=== PATIENT | female | born 1985 | race African-American/Black ===

== ENCOUNTER 2018-02-25 14:34 | Inpatient (IN) ==
[2018-02-28 08:35] VITALS: BP 111/69
== END 2018-02-28 13:20 | disposition home or self-care (01) | DRG 560 ==
LOC: N.LDOUT 14:34 → N.LD 14:35 → N.OB 02-26 17:31
PROVIDERS: ADMIT Obstetrics & Gynecology; ATTEND Obstetrics & Gynecology

== ENCOUNTER 2018-03-09 12:27 | Inpatient (IN) ==
[2018-03-09] MEDS ORDERED: ONDANSETRON 4 MG/2 ML VIAL IV STA (14:42)
[2018-03-09] MEDS ORDERED: hydrALAZINE 20 MG/1 ML VIAL IV STA (14:43)
[2018-03-09] MEDS ORDERED: MORPHINE 4 MG/1 ML VIAL IV STA (14:44)
[2018-03-09 15:11] LABS: Albumin 3.4 G/DL (3.4-5.0); Bilirubin,Total 0.5 MG/DL (0.2-1.0); Calcium 8.4 MG/DL (8.5-10.1); Osmolality,Calculated 283.8 MOS/KG (273-304); Potassium 3.5 MMOL/L (3.5-5.1); Total Protein 7.1 G/DL (6.4-8.3)
[2018-03-09] MEDS ORDERED: ONDANSETRON 4 MG/2 ML VIAL ONE (15:11)
[2018-03-09] MEDS ORDERED: MORPHINE 4 MG/1 ML VIAL ONE (15:11)
[2018-03-09] MEDS ORDERED: hydrALAZINE 20 MG/1 ML VIAL ONE (15:20)
[2018-03-09 15:21] LABS: Basophils # 0.1 10*3/uL (0.0-0.2); Basophils % 0.7 % (0.0-0.8); Eosinophils # 0.1 10*3/uL (0.0-0.87); Eosinophils % 1.5 % (0.00-10.9); Hematocrit 35.1 VOL% (35.7-47.0); Hemoglobin 11.8 GM/DL (12.0-16.0); Immature Granulocytes % 0.4 %; Immature Granulocytes Absolute 0.03 #; Lymphocytes # 2.2 10*3/uL (1.4-4.0); Mean Corpuscular HGB Conc 33.6 GM/DL (32-36); Mean Corpuscular Hemoglobin 24 PG (27-34); Mean Corpuscular Volume 70.8 FL (87-102); Mean Platelet Volume 9.4 FL (9.6-12.0); Monocytes # 0.4 10*3/uL (0.11-0.8); Monocytes % 5.3 % (1.7-12.7); Neutrophils # 4.6 10*3/uL (1.4-7.4); Neutrophils % 62.1 % (38.7-73.9); Platelet Count 307 T/CUMM (130-400); Red Blood Count 4.96 MC/CUMM (3.8-5.5); Red Cell Distribution Width 17.4 % (9.3-17.3); White Blood Count 7.4 T/CUMM (4-12)
[2018-03-09 15:42] LABS: Apearance,Urine CLOUDY (Clear); Bilirubin,Urine Negative (Negative); Blood, Urine Large mg/dL (Negative); Glucose,Urine (UA) Negative (Negative); Ketones,Urine Negative (Negative); Nitrite,Urine Negative (Negative); Protein,Urine 100 MG/DL; RBC,Urine 1339 /HPF (0-4); Urine Color Yellow (Yellow); Urine Specific Gravity 1.006 (1.001-1.035); Urine Urobilinogen < 2.0 EU/DL (0.2-1.0); WBC,Urine 500 /HPF (0-6)
[2018-03-09] MEDS ORDERED: LORazepam 2 MG/1 ML VIAL IV STA ×3 (15:42→16:06)
[2018-03-09] MEDS ORDERED: MAGNESIUM SULF RIDER 4 GM in PREMIX 1 EACH IV STA ×3 (15:50→15:58)
[2018-03-09] MEDS ORDERED: MAGNESIUM SULF DRIP 40 GM/1,000 ML ML IV SCH ×4 (16:00→20:00)
[2018-03-09] MEDS ORDERED: MAGNESIUM SULF RIDER 50 ML IV ONE ×2 (16:07→16:08)
[2018-03-09] MEDS ORDERED: ONDANSETRON 4 MG/2 ML VIAL IV PRN (17:23)
[2018-03-09] MEDS: DOCUSATE SODIUM 100 MG CAPSULE PO SCH (20:01)
[2018-03-10 04:10] LABS: Basophils % 0.4 % (0.0-0.8); Eosinophils # 0.1 10*3/uL (0.0-0.87); Hematocrit 35.2 VOL% (35.7-47.0); Hemoglobin 11.9 GM/DL (12.0-16.0); Immature Granulocytes % 0.3 %; Immature Granulocytes Absolute 0.03 #; Lymphocytes # 1.9 10*3/uL (1.4-4.0); Lymphocytes % 20.8 % (21.3-54.2); Mean Corpuscular HGB Conc 33.8 GM/DL (32-36); Mean Corpuscular Hemoglobin 23 PG (27-34); Mean Corpuscular Volume 68.6 FL (87-102); Monocytes # 0.5 10*3/uL (0.11-0.8); Neutrophils # 6.4 10*3/uL (1.4-7.4); Neutrophils % 71.5 % (38.7-73.9); Platelet Count 361 T/CUMM (130-400); Red Blood Count 5.13 MC/CUMM (3.8-5.5); Red Cell Distribution Width 17.5 % (9.3-17.3)
[2018-03-10 04:47] LABS: Albumin 2.8 G/DL (3.4-5.0); Bilirubin,Total 0.7 MG/DL (0.2-1.0); Calcium 7.9 MG/DL (8.5-10.1); Osmolality,Calculated 285.6 MOS/KG (273-304); Potassium 2.8 MMOL/L (3.5-5.1); Uric Acid 9.2 MG/DL (2.6-6.0)
[2018-03-10] MEDS ORDERED: PROMETHAZINE 25 MG/1 ML VIAL IM PRN (07:52)
[2018-03-10] MEDS ORDERED: MEPERIDINE 50 MG/1 ML VIAL IV PRN (07:52)
[2018-03-10] MEDS: DOCUSATE SODIUM 100 MG CAPSULE PO SCH (08:07)
[2018-03-10] MEDS: ACETAMINOPHEN 325 MG TABLET PO PRN ×2 (08:07→16:03)
[2018-03-10] MEDS: POTASSIUM CHLORIDE 20 MEQ TABLET PO PRN ×4 (10:08→16:02)
[2018-03-10 10:47] LABS: Apearance,Urine Slightly Hazy (Clear); Bacteria,Urine Few /HPF (Few); Bilirubin,Urine Negative (Negative); Blood, Urine Small mg/dL (Negative); Glucose,Urine (UA) Negative (Negative); Hyaline Casts,Urine 6 /LPF (0-3); Ketones,Urine Negative (Negative); Mucus,Urine Occasional /LPF (Occasional); Nitrite,Urine Negative (Negative); Protein,Urine Negative; RBC,Urine 11 /HPF (0-4); Urine Color Yellow (Yellow); Urine Specific Gravity 1.015 (1.001-1.035); Urine Urobilinogen < 2.0 EU/DL (0.2-1.0); WBC,Urine 54 /HPF (0-6)
[2018-03-11] MEDS: DOCUSATE SODIUM 100 MG CAPSULE PO SCH ×2 (09:33→20:44)
[2018-03-11] MEDS: ACETAMINOPHEN 325 MG TABLET PO PRN (21:21)
[2018-03-12 07:14] VITALS: BP 135/86
[2018-03-12] MEDS: DOCUSATE SODIUM 100 MG CAPSULE PO SCH (09:33)
== END 2018-03-12 10:20 | disposition home or self-care (01) | DRG 561 ==
LOC: N.ED 12:27 → N.EDINP 16:14 → N.ICU 17:10 → N.OB 03-10 09:13
PROVIDERS: ADMIT Obstetrics & Gynecology; ATTEND Obstetrics & Gynecology